=== PATIENT | female | born 1990 | race Caucasian/White ===

== ENCOUNTER 2019-12-24 01:00 | Emergency (ER) | payer OTHER ==
[~2019-12-24] VITALS: Ht 160 cm; Wt 170.0 kg
[2019-12-24 01:05] VITALS: BP 119/78
[2019-12-24] MEDS ORDERED: BUTA1TAB23 PO (01:31)
[2019-12-24] MEDS ORDERED: ORPH-16 PO (01:31)
--- NOTE | 2019-12-24 01:31 | PHYS DOC ---
Past History Past Medical History: Hypertension Past Surgical History: Other Additional Past Surgical Histo: BONE CYST RT LEG REMOVED Smoking: Non-smoker Alcohol Use: None Adult General Chief Complaint Chief Complaint: HEADACHE HPI HPI 29-year-old female presents with report of headache and left-sided upper back pain which is been going on for the last few days. Patient was recently seen by her PCP and started on blood pressure medication due to elevated blood pressure into the 150s over 100s. Patient recently started nifedipine ER 30 mg last night. Reports got up this morning with increase in headache and a sharp pain in the middle of her back. Patient at this time felt like her heart was racing. Denies nausea or vomiting. Denies fever or chills. Denies trauma. Denies . Patient became concerned and therefore presents to the ER for evaluation. Review of Systems Review of Systems Constitutional: Denies fever or chills Eyes: Denies redness or eye pain HENT: Denies nasal congestion or sore throat Respiratory: Denies cough or shortness of breath Cardiovascular: Denies chest pain; reports palpitations GI: Denies abdominal pain, nausea, or vomiting : Denies dysuria or hematuria Musculoskeletal: Reports left upper thoracic back pain; denies joint pain Integument: Denies rash or skin lesions Neurologic: Reports headache; denies focal weakness or sensory changes Complete systems were reviewed and found to be within normal limits, except as documented in this note. Allergies Allergies Allergies Coded Allergies Type Severity Reaction Last Updated Verified cefadroxil Allergy Intermediate 12/24/19 Yes Physical Exam Physical Exam Constitutional: Well developed, well nourished, no acute distress, non-toxic a ppearance, anxiety HENT: Normocephalic, atraumatic, oropharynx moist Eyes: PERRL, EOMI, conjunctiva normal, no discharge Neck: Normal range of motion, no midline tenderness, supple Cardiovascular: Heart rate normal, regular rhythm Lungs & Thorax: Bilateral breath sounds clear to auscultation, no wheezing Abdomen: Soft, no tenderness Skin: Warm, dry, no erythema, no rash Back: Left upper thoracic paraspinal tenderness, no midline spinal tenderness noted, CVA tenderness Extremities: No tenderness, ROM intact, no edema Neurologic: Alert and oriented X 3, normal motor function, normal sensory function, no focal deficits noted Psychologic: Affect anxious, judgment normal Current Patient Data Vital Signs Vital Signs Date Time Temp Pulse Resp B/P (MAP) Pulse Ox O2 Delivery O2 Flow Rate FiO2 12/24/19 01:05 99.1 113 18 119/78 (92) 96 Room Air EKG EKG [] Radiology/Procedures Radiology/Procedures [] Course & Med Decision Making Course & Med Decision Making Neurologically intact patient presents with report of headache and left upper paraspinal thoracic back pain. Reports his been ongoing for the past few days. Reported elevated blood pressures in the 150s over 100s recently and was started on antihypertensives yesterday. Patient became concerned when she had recurrence of pain and discomfort tonight upon getting up from bed. Patient did have some palpitations which appear to be anxiety related. Patient focally tender to musculature. No history of trauma. Symptomatic treatment provided with IM Norflex, oral dexamethasone, and oral Fioricet. Patient stable for discharge with outpatient follow-up with PCP/neurology. Neurology referral provided. Discussed findings and plan with patient, who acknowledges understanding and agreement. Dragon Disclaimer Dragon Disclaimer This electronic medical record was generated, in whole or in part, using a voice recognition dictation system. Departure Departure: Impression: Primary Impression: Headache Additional Impression: Thoracic back pain Disposition: HOME, SELF-CARE Condition: STABLE Referrals: MOHAN BAUM (PCP) MARC BARTON MD Patient Instructions: Back Pain, Adult, [id number], Headache, FAQs Scripts Butalb/Acetaminophen/Caffeine ([id number] [id number]) 1 Each Tablet 1 EACH PO Q6HRS PRN for HEADACHE, #14 TAB Prov: TABITHA MACIAS DO 12/24/19 Orphenadrine Citrate (ORPHENADRINE CITRATE) 100 Mg Tablet.er 1 TAB PO BID PRN for MUSCLE PAIN, #14 TAB Prov: TABITHA MACIAS DO 12/24/19 Problem Qualifiers Primary Impression: Headache Headache type: unspecified Headache chronicity pattern: acute headache Intractability: not intractable Qualified Codes: R51 - Headache Additional Impression: Thoracic back pain Chronicity: acute Back pain laterality: left Qualified Codes: M54.6 - Pain in thoracic spine TABITHA MACIAS DO Dec 24, 2019 01:31
[2019-12-24] MEDS ORDERED: ORPHENADRINE CITRATE 60 MG/2 ML VIAL. IM ONE (02:00)
[2019-12-24] MEDS ORDERED: BUTALB/APAP/CAFEIN 50/325/40MG TABLET. PO ONE (02:00)
[2019-12-24] MEDS ORDERED: DEXAMETHASONE 4 MG TABLET PO ONE (02:00)
== END 2019-12-24 02:00 | disposition home or self-care (01) ==
LOC: ER 01:00
DX: R51 Headache (principal); M54.6 Pain in thoracic spine; I10 Essential (primary) hypertension; Z88.8 Allergy status to other drugs, medicaments and biological substances
CPT/HCPCS: 96372; 99283; J2360; J8540